=== PATIENT | male | born 1955 | race Caucasian/White ===

== ENCOUNTER 2020-02-18 07:51 | Outpatient (CLI) | payer MEDICARE, OTHER, SELFPAY ==
--- NOTE | 2020-02-18 | ECG_ITS ---
Measurements Intervals [place] Rate: 68 P: 40 HI: 158 QRS: -27 QRSD: 109 T: 7 QT: 390 QTc: 415 Interpretive Statements SINUS RHYTHM DELAYED PRECORDIAL R/S TRANSITION VOLTAGE CRITERIA FOR LVH BORDERLINE T WAVE ABNORMALITY- INFERIOR LEADS BORDERLINE ECG Electronically Signed On 02-18-2020 8:49:18 CDT by Haroon Strange D.O.
[2020-02-18 08:42] LABS: Albumin Level 4.4 g/dL (3.5-5.1); Estimated Glomerular Filt Rate > 60; Glucose 138 mg/dL (75-110)
[2020-02-18 09:10] LABS: Hemoglobin A1C 6.3 % (<5.7)
== END 2020-02-18 07:52 | disposition home or self-care (01) ==
LOC: ANHLAB 08:00
PROVIDERS: Visit Provider Orthopaedic Surgery
DX: Z01.812 Encounter for preprocedural laboratory examination (principal); M17.11 Unilateral primary osteoarthritis, right knee; I10 Essential (primary) hypertension; E78.00 Pure hypercholesterolemia, unspecified
CPT/HCPCS: 36415; 82040; 82565; 82947; 83036; 93005

== ENCOUNTER 2020-02-28 08:00 | Outpatient (CLI) | payer MEDICARE, OTHER, SELFPAY ==
[2020-02-28 09:34] LABS: Basophils Absolute Auto 0.1 K/mm3 (0.0-0.1); Basophils Percent Auto 0.8 % (0.2-1.2); Eosinophils Absolute Auto 0.1 K/mm3 (0-0.3); Eosinophils Percent Auto 1.6 % (0-4.4); Hematocrit 48.5 % (42.0-52.0); Hemoglobin 16.3 g/dL (14.0-18.0); Immature Granulocyte Absolute 0.04 K/mm3 (0.00-0.031); Immature Granulocyte Percent A 0.5 % (0-0.5); Lymphocytes Absolute Auto 1.93 K/mm3 (0.9-3.2); Lymphocytes Percent Auto 25.6 % (18.3-44.2); Mean Corpuscular HGB Conc 33.6 g/dl (32-36); Mean Corpuscular Hemoglobin 29.6 pg (26-34); Mean Platelet Volume 9.2 fl (7.4-10.4); Monocytes Absolute Auto 0.8 K/mm3 (0.1-0.6); Monocytes Percent Auto 10.2 % (2.6-8.5); Neutrophils Absolute Auto 4.6 K/mm3 (1.3-6.7); Neutrophils Percent Auto 61.3 % (45.5-73.1); Platelet Count Result 298 k/mm3 (150-375); Red Blood Count 5.51 M/mm3 (4.6-6.20); Red Cell Distribution Width 13.2 % (11.5-14.5); White Blood Count 7.5 K/mm3 (4.5-10.0)
[2020-02-28 09:48] LABS: Anion Gap 8 mmol/L (8-16); Blood Urea Nitrogen 24 mg/dL (9-20); Calcium 10.2 mg/dL (8.4-10.2); Carbon Dioxide 32 mmol/L (22-30); Chloride 98 mmol/L (98-107); Estimated Glomerular Filt Rate > 60; Glucose 151 mg/dL (75-110); Potassium 3.9 mmol/L (3.4-5.0); Sodium 138 mmol/L (137-145)
[2020-02-28 10:10] LABS: Urine Cotinine NEGATIVE
== END 2020-02-28 08:01 | disposition home or self-care (01) ==
LOC: ANHSURGERY 08:05
PROVIDERS: Anesthesiology; Visit Provider Orthopaedic Surgery
DX: M17.11 Unilateral primary osteoarthritis, right knee (principal); Z01.812 Encounter for preprocedural laboratory examination; I10 Essential (primary) hypertension
CPT/HCPCS: 36415; 80048; 80307; 85025; 87081

== ENCOUNTER 2020-03-11 00:59 | Outpatient (CLI) | payer MEDICARE, OTHER, SELFPAY ==
[2020-03-11 18:13] LABS: SARS-CoV-2 RNA PCR Negative
== END 2020-03-11 01:00 | disposition home or self-care (01) ==
LOC: ANHCOVIDDT 01:00
PROVIDERS: Visit Provider Orthopaedic Surgery
DX: Z01.812 Encounter for preprocedural laboratory examination (principal); Z11.59 Encounter for screening for other viral diseases
CPT/HCPCS: 87635; C9803; U0003

== ENCOUNTER 2020-03-14 00:46 | Day surgery (SDC) | payer MEDICARE, OTHER, SELFPAY ==
[2020-02-28 08:14] VITALS: BP 157/81; PULSE 72; RESP 16; TEMP 36.9; O2SAT 99; BMI 34.4
--- NOTE | 2020-03-13 07:32 | WPDANESEPPF ---
Anes - Initial Pre Proc Eval Procedure: Operation Date: 03/14/20 08:30 Proposed Procedures p Right Total Knee Arthroplasty - Evelio Navarro MD Date/Time: 03/13/20 07:32 Surgeon: Evelio Navarro MD Pre Op Diagnosis: Primary OA Right Knee Patient Data Age: 64 Gender: M Height: 1.8 m Weight: 112.2 kg Last Vital Signs Temp 36.9 C 02/28/20 08:14 Pulse 72 02/28/20 08:14 Resp 16 02/28/20 08:14 BP 157/81 H 02/28/20 08:14 Pulse Ox 99 02/28/20 08:14 Allergies Allergy/AdvReac Type Severity Reaction Status Date / Time No Known Allergies Allergy Verified 03/14/20 06:55 Home Medications Medication Instructions Recorded Confirmed Type atorvastatin 10 mg tablet 10 mg PO HS 01/04/20 03/14/20 History latanoprost 0.005 % eye drops 1 drop EACH EYE HS 01/04/20 03/14/20 History lisinopril 10 2 tablet PO QAM 01/04/20 03/14/20 History mg-hydrochlorothiazide 12.5 mg tablet ycdjxrop-xne-RH-lycopen-lutein 1 tablet PO DAILY 02/28/20 03/14/20 History [Centrum Silver Men] omega 9-lsc-kol-fish oil [Fish Oil] 1 cap PO DAILY 02/28/20 03/14/20 History Patient hx anesthesia problems: none Family hx anesthesia problems: none PMFSH Past Medical History Medical History (Updated 03/13/20 @ 07:35 by Sanjeev Ta MD) Acquired trigger finger Cancer PROSTATE CA, [facility] REMOVED FROM CHEST AREA IN DR OFFICE 2014 Derangement of knee Disorder of sacrum Glaucoma PRE GLAUCOMA USES DROPS HTN (hypertension) Hyperlipemia Obesity Osteoarthritis Primary osteoarthritis of right knee Surgical History Surgical History History of arthroscopy of left knee (~2008) History of arthroscopy of left knee (~2014) History of arthroscopy of right knee (~2012) History of arthroscopy of right knee (~2017) History of prostate surgery (~2017) History of shoulder surgery (~2009) Social History Social History Smoking packs per day: 2 Smoking cigarettes per day: 40.0 Years smoked: 5 Smoking pack-years: 10.00 Smoking status: Former smoker Tobacco type: cigarettes Second hand tobacco smoke exposure: No Smoking end date: 07/07/79 Additional smoking assessment comments: DENIES ANY FORM OF TOBACCO USE Alcohol intake: current Drinks per week: 1 Alcohol use details: WINE Living arrangements: with family Spiritual care concerns: No Anes - Eval Final PreProcedure Day of Procedure 03/13/20 07:32 Patient weight: obese Heart: regular rate and rhythm Lungs: clear to auscultation and normal air movement Airway: Mallampati scale class II Neurological: alert and oriented Last oral intake: >/= 8 hours ASA classification: III Emergent: no Anesthetic plan: proceed Anesthesia type and monitoring: general LMA Informed Consent: The patient's anesthetic plan and its attendant risks and benefits were discussed with the patient/family/POA. Questions were solicited and answers provided to the satisfaction of the patient/family/POA.
[2020-03-14] VITALS (16 sets, daily range): BP systolic 114–171; BP diastolic 65–90; PULSE 78–96; RESP 10–20; TEMP 35.7–36.5; O2SAT 88–100; BMI 34.3; BMI 36.8
--- NOTE | ~2020-03-14 | XR_ITS ---
XR knee RT 2V DATE: 03/14/2020 10:27 INDICATION: Postoperative examination TECHNIQUE: AP and cross table lateral views COMPARISON: None FINDINGS: Status post right knee total arthroplasty with patellar resurfacing. There is expected pos toperative subcutaneous emphysema and intra-articular gas. No fracture or dislocation, periosteal reaction or bone destruction. IMPRESSION: Status post right knee total arthroplasty Reviewed, dictated and finalized at location A.
[2020-03-14] MEDS: KETOROLAC 15 MG/ML VIAL (*BKC) IV PUSH (07:10)
[2020-03-14] MEDS: ACETAMINOPHEN 500 MG TABLET 1000 MG PO (07:10)
[2020-03-14] MEDS: TRANEXAMIC ACID 1,000MG/ISO100 1,000 MG/100 ML BAG 200 MG IVPB (07:11)
[2020-03-14] MEDS: LACTATED RINGERS 1,000 ML 30 ML IV CONT ×2 (07:11→10:11)
--- NOTE | 2020-03-14 07:45 | WPDANESPNB ---
Anes - Peripheral Nerve Block Date/Time: 03/14/20 07:45 I have discussed with the patient/family/POA the placement of a peripheral nerve block for post-operative pain management, including associated risks, benefits, complications, and side effects. Alternative methods of post-operative analgesia were detailed. Questions were solicited and answers provided to the satisfaction of the patient/family/POA. Time-Out: A pre-procedural Time-Out was completed immediately before starting the procedure and confirmed: Patient Identification, Site, Procedure, Patient Position and the Availability of Requisite Equipment. Clinical Indications: Acute post-operative pain management requested by the operative surgeon. Nerve Block Insertion Note Anes-nerve block: adductor canal right Patient position: supine Skin prep: chlorhexidine Needle: 22 gauge, stimulating, insulated echogenic needle. Needle length: 80 mm Technique: ultrasound Technique comment: in plane Injectate: bupivacaine 0.5% with epi 5 mcg/ml (30cc) Observations: tolerated well Complications: none Procedure start time:: 800 Procedure end time:: 805
--- NOTE | 2020-03-14 07:59 | WPDHPUPDATE1 ---
History and Physical Update Update Date/Time: 03/14/20 07:59 History and Physical has been reviewed, including an updated exam of the patient. There are NO changes in the patient's condition. Risks, benefits, and alternatives have been discussed and questions answered. Patient agrees to proceed with procedure.
[2020-03-14] MEDS: ceFAZolin 2 GM/D5W 50 ML 2 GM/50 ML BAG IVPB (08:10)
[2020-03-14] MEDS: GENTAMICIN BONE CEMENT REFOBACIN 1 EACH TOPICAL (09:24)
--- NOTE | 2020-03-14 10:20 | SUR.PHASEI ---
xray at bedside
--- NOTE | 2020-03-14 10:37 | PM.PROC ---
Procedure Note - Detailed Date of procedure: 03/14/20 Pre-op diagnosis: Primary OA Right Knee Post-op diagnosis: same Procedure performed: Total knee arthroplasty, right Implants: [employer] size 5 press-fit femur, size 6 cemented low-profile tibia, 11mm CR polyethylene insert, 38mm asymmetric metal backed patellar component. Anesthesia: GETA and regional (subsartorial nerve block) Surgeon: Evelio Navarro MD Drains: No Complications: None Findings: OPERATIVE DETAILS: The patient was given a nerve block preoperatively, and then brought to the operating room. A general anesthetic was administered. The leg was prepped and draped in the usual sterile fashion. The limb was elevated and the tourniquet inflated to 300 mmHg during initial exposure. A longitudinal incision was created along the medial border of the patella and patellar tendon, and a minimally invasive optimized mid-vastus approach to the knee was performed. A moderate medial release was taken. The knee was then flexed. The osteophytes were carefully removed. The intramedullary guide was placed in the femoral canal. The distal femoral resection was then taken with the oscillating saw. The collateral ligaments were carefully protected. The tibia was carefully exposed. The jig was applied, and the proximal tibia was resected according to preoperative plan. The knee was balanced in extension. Slight increased medial release was taken. The anterior cruciate ligament and meniscal remnants were removed. The posterior cruciate ligament was preserved. The patella was measured. Patellar resection was carried out with the oscillating saw. The lug holes drilled. The femur was sized and rotation assessed using a combination of gap balancing, posterior referencing, and the AP axis. The 4 in 1 cutting block was used to finish the femoral cuts after equal gaps were assured. The lug holes were drilled. The osteophytes were carefully removed from the back of the knee. The knee was copiously irrigated with antibiotic solution periodically throughout the procedure. The meniscal remnants were removed. The spacer block was used to confirm equal flexion and extension gaps. Further releases were performed as needed. The tibia was sized and broached. The bony surfaces were prepared for cementing with pulsatile lavage. The real tibial component was cemented into position followed by press fitting the femoral component. Excess cement was carefully removed. The patella component was press-fit. Patellar tracking was carefully assessed. No additional releases were required. The wound was closed with #1 Vycril suture, #2 Quill suture, 0-Quill suture, and 2-0 Quill suture followed by Steri-Strips. A sterile bulky dressing was applied. Meticulous hemostasis was maintained throughout the procedure. There were no complications. The patient was extubated and brought to the recovery room in stable condition after the application of sterile dressing with Luis Carlos bandage.
[2020-03-14] MEDS: hydroCHLOROthiazide 25 MG TABLET PO (12:13)
[2020-03-14] MEDS: lisinopriL 20 MG TABLET PO (12:13)
--- NOTE | 2020-03-14 12:13 | ADMGEN ---
This patient, Thomas Crockett, was admitted to 2 Medical Room 248-01. Patient/family oriented to hospital policies and general routines including ID bracelet, bed and alarms, visiting hours, pain management, procedures, bathroom and other care routines, personal items, smoking policy, room service/diet, and visiting hours. Valuables list has been completed. Information on how to activate the Rapid Response Team has been discussed. Patient/Family are encouraged to report perceived risks to care and to ask questions if they do not understand what they are told or what they should do.
[2020-03-14] MEDS: SODIUM CHLORIDE 0.9% IV 1,000 ML 125 ML IV CONT (12:27)
[2020-03-14] MEDS: ONDANSETRON INJ 4 MG/2 ML VIAL IV PUSH ×2 (13:43→16:20)
[2020-03-14] MEDS: DOCUSATE SODIUM 100 MG CAPSULE PO (17:22)
[2020-03-14] MEDS: ASPIRIN 81 MG ENTERIC TABLET PO (17:22)
[2020-03-14] MEDS: MELOXICAM 7.5 MG TABLET PO (17:23)
[2020-03-14] MEDS: ATORVASTATIN 10 MG TABLET PO (20:34)
[2020-03-14] MEDS: LATANOPROST 0.005% OP SOLN 2.5 ML BTL 1 DROP EACH EYE (20:35)
[2020-03-15 05:00] LABS: Basophils Percent Auto 0.2 % (0.2-1.2); Eosinophils Percent Auto 0.2 % (0-4.4); Hematocrit 37.8 % (42.0-52.0); Hemoglobin 12.8 g/dL (14.0-18.0); Immature Granulocyte Absolute 0.06 K/mm3 (0.00-0.031); Immature Granulocyte Percent A 0.5 % (0-0.5); Lymphocytes Absolute Auto 1.41 K/mm3 (0.9-3.2); Lymphocytes Percent Auto 10.9 % (18.3-44.2); Mean Corpuscular HGB Conc 33.9 g/dl (32-36); Mean Corpuscular Hemoglobin 29.8 pg (26-34); Mean Corpuscular Volume 87.9 fl (80-100); Mean Platelet Volume 10.1 fl (7.4-10.4); Monocytes Absolute Auto 1.2 K/mm3 (0.1-0.6); Monocytes Percent Auto 9.5 % (2.6-8.5); Neutrophils Absolute Auto 10.2 K/mm3 (1.3-6.7); Neutrophils Percent Auto 78.7 % (45.5-73.1); Platelet Count Result 242 k/mm3 (150-375); Red Cell Distribution Width 12.9 % (11.5-14.5)
[2020-03-15 05:11] LABS: Anion Gap 5 mmol/L (8-16); Blood Urea Nitrogen 20 mg/dL (9-20); Calcium 8.7 mg/dL (8.4-10.2); Carbon Dioxide 27 mmol/L (22-30); Chloride 101 mmol/L (98-107); Estimated CRCL calculation 104 ml/min; Estimated Glomerular Filt Rate > 60; Glucose 150 mg/dL (75-110); Potassium 3.9 mmol/L (3.4-5.0); Sodium 133 mmol/L (137-145)
[2020-03-15 05:33] VITALS: BP 118/70; PULSE 77; RESP 20; TEMP 36.2; O2SAT 98
--- NOTE | 2020-03-15 07:59 | P.PNAN_ITS ---
Anes - Prog Note Post-Op Date/Time: 03/15/20 07:59 Cardiovascular status: normal Respiratory status: normal Airway patency: baseline Mental status: baseline Post-Op hydration status: normal Vital Signs: Last Vital Signs Temp 36.2 C L 03/15/20 05:33 Pulse 77 03/15/20 05:33 Resp 20 03/15/20 05:33 BP 118/70 03/15/20 05:33 Pulse Ox 98 03/15/20 05:33 Pain Score (VAS): 4/10 I/O: Intake & Output 03/14/20 03/14/20 03/15/20 15:59 23:59 07:59 Intake Total 700 1340 640 Output Total 200 600 Balance 700 1140 40 Laboratory Tests 03/15/20 04:36 03/15/20 04:36 03/14/20 03/15/20 03/15/20 07:15 04:36 04:36 WBC 13.0 H RBC 4.30 L Hgb 12.8 L D Hct 37.8 L MCV 87.9 MCH 29.8 MCHC 33.9 RDW 12.9 Plt Count 242 MPV 10.1 Immature Gran % (Auto) 0.5 Neut % (Auto) 78.7 H Lymph % (Auto) 10.9 L [place] % (Auto) 9.5 H Eos % (Auto) 0.2 Baso % (Auto) 0.2 Lymph # (Auto) 1.41 [place] # (Auto) 1.2 H Eos # (Auto) 0.0 Baso # (Auto) 0.0 Abs Immat Gran (auto) 0.06 H Absolute Neuts (auto) 10.2 H Absolute Nucleated RBC 0.0 Nucleated RBC % 0.0 Sodium 133 L Potassium 3.9 Chloride 101 Carbon Dioxide 27 Anion Gap 5 L BUN 20 Creatinine 0.80 Estim Creat Clear Calc 104 Estimated GFR > 60 Glucose 150 H Calcium 8.7 Blood Type B Negative Antibody Screen Negative Post-procedural complaints: none Patient Feedback: Patient satisfied with anesthetic care.
[2020-03-15] MEDS: ONDANSETRON INJ 4 MG/2 ML VIAL IV PUSH (08:01)
[2020-03-15] MEDS: DOCUSATE SODIUM 100 MG CAPSULE PO (09:50)
[2020-03-15] MEDS: hydroCHLOROthiazide 25 MG TABLET PO (09:50)
[2020-03-15] MEDS: ASPIRIN 81 MG ENTERIC TABLET PO (09:50)
[2020-03-15] MEDS: MELOXICAM 7.5 MG TABLET PO (09:50)
[2020-03-15] MEDS: lisinopriL 20 MG TABLET PO (09:51)
[2020-03-15] MEDS: OPTI-GEN TAB 1 TABLET PO (09:51)
[2020-03-15 09:58] VITALS: BP 114/65; PULSE 86; RESP 20; TEMP 36.4; O2SAT 97
[2020-03-15 14:00] VITALS: BP 129/72; PULSE 78; RESP 20; TEMP 36.2; O2SAT 100
== END 2020-03-15 15:01 | disposition home or self-care (01) ==
LOC: ANHSURGERY 06:30 → ANH2MED 11:38
PROVIDERS: PCP Family Medicine; Visit Provider Orthopaedic Surgery
PROC: (CPT 27447; principal; 2020-03-14 08:30)
DX: M17.11 Unilateral primary osteoarthritis, right knee (principal); G89.18 Other acute postprocedural pain; I10 Essential (primary) hypertension; E78.5 Hyperlipidemia, unspecified; H40.9 Unspecified glaucoma; Z85.46 Personal history of malignant neoplasm of prostate; Z87.891 Personal history of nicotine dependence; E66.9 Obesity, unspecified; Z68.36 Body mass index [BMI] 36.0-36.9, adult; Z23 Encounter for immunization
CPT/HCPCS: 27447; 64447; 36415; 73560; 80048; 85025; 86850; 86900; 86901; 90471; 90686; 97110; 97116; 97161; 97165; 97530; A9270; C1713; C1776; G0008; J0131; J0171; J0690; J1100; J1170; J1885; J2250; J2270; J2405; J2704; J2795; J3010; J7030; J7120